=== PATIENT | male | born 1985 | race Caucasian/White ===

== ENCOUNTER → 2020-11-22 | Day surgery (SDC) | payer OTHER ==
[~2020-11-22] VITALS: Ht 188 cm; Wt 147.4 kg
[~2020-11-22] MED LIST: HYDROCODON-ACE1 EAC2 PO; NORCO 5-325 TA1 EACH PO; ONDANSETRON ODT8 MG PO; VICODIN 10/3251 EACH PO
== END | disposition home or self-care (01) ==
LOC: FAS 06:50
DX: K64.1 Second degree hemorrhoids (principal); K64.4 Residual hemorrhoidal skin tags; F17.210 Nicotine dependence, cigarettes, uncomplicated; Z79.899 Other long term (current) drug therapy
CPT/HCPCS: J1100; J2250; J2704; J7120

== ENCOUNTER → 2021-02-11 | Day surgery (SDC) | payer OTHER ==
[~2021-02-11] VITALS: Ht 188 cm; Wt 147.4 kg
[2021-02-11 11:02] LABS: HCT 43.4 % (42.0-52.0); HGB 14.6 g/dl (13.2-18.0); MCH 30.6 pg (25.0-31.0); MCHC 33.6 g/dL (32.0-36.0); RBC 4.77 M/uL (4.70-6.00); WBC 11.9 K/uL (4.0-10.5)
[2021-02-11 11:34] LABS: ALBUMIN 3.5 g/dL (3.4-5.0); BILIRUBIN - TOTAL 0.4 mg/dL (0.2-1.0); BUN/CREAT RATIO (CALC) 13.9 RATIO; CREATININE 0.79 mg/dL (0.67-1.17); GLOBULIN (CALCULATION) 3.6 g/dL; TOTAL PROTEIN 7.1 g/dL (6.4-8.2)
== END | disposition home or self-care (01) ==
LOC: FAS 08:46
PROVIDERS: Surgery
DX: L05.01 Pilonidal cyst with abscess (principal); K64.8 Other hemorrhoids; F17.210 Nicotine dependence, cigarettes, uncomplicated; Z79.891 Long term (current) use of opiate analgesic
CPT/HCPCS: 36415; 80053; 93005; J1170; J2250; J2405; J2704; J3010; J7120

== ENCOUNTER → 2021-03-07 | Day surgery (SDC) | payer OTHER ==
[~2021-03-07] VITALS: Ht 188 cm; Wt 147.4 kg
== END | disposition home or self-care (01) ==
LOC: FAS 07:01
DX: L05.01 Pilonidal cyst with abscess (principal); F17.210 Nicotine dependence, cigarettes, uncomplicated
CPT/HCPCS: J2250; J2270; J2405; J2704; J2710; J3010

== ENCOUNTER → 2022-03-06 | Day surgery (SDC) | payer OTHER ==
[~2022-03-06] VITALS: Ht 188 cm; Wt 147.4 kg
[2022-03-06 10:50] LABS: HCT 46.6 % (42.0-52.0); HGB 15.3 g/dl (13.2-18.0); MCH 29.5 pg (25.0-31.0); MCHC 32.8 g/dL (32.0-36.0); MPV 10.7 fL (6.0-9.5); RBC 5.18 M/uL (4.70-6.00); RDW 12.2 % (11.5-14.0); WBC 10.1 K/uL (4.0-10.5)
[2022-03-06 11:22] LABS: ALBUMIN 3.7 g/dL (3.4-5.0); BILIRUBIN - TOTAL 0.2 mg/dL (0.2-1.0); BUN/CREAT RATIO (CALC) 18.4 RATIO; CREATININE 0.76 mg/dL (0.67-1.17); GLOBULIN (CALCULATION) 3.6 g/dL; POTASSIUM 4.3 mmol/L (3.5-5.1); TOTAL PROTEIN 7.3 g/dL (6.4-8.2)
== END | disposition home or self-care (01) ==
LOC: FAS 09:51
PROVIDERS: Surgery
DX: L05.01 Pilonidal cyst with abscess (principal); F17.210 Nicotine dependence, cigarettes, uncomplicated
CPT/HCPCS: 36415; 80053; J1170; J2250; J2704; J3010; J7120

== ENCOUNTER → 2022-04-17 | Day surgery (SDC) | payer OTHER ==
[~2022-04-17] VITALS: Ht 188 cm; Wt 147.4 kg
[~2022-04-17] MED LIST changes: +BUSPIRONE HCL10 MG PO
[2022-04-17 11:12] LABS: HGB 15.7 g/dl (13.2-18.0); MCH 30.3 pg (25.0-31.0); MCHC 33.4 g/dL (32.0-36.0); MCV 90.7 fL (78.0-100.0); MPV 10.4 fL (6.0-9.5); RBC 5.18 M/uL (4.70-6.00); RDW 12.4 % (11.5-14.0); WBC 11.4 K/uL (4.0-10.5)
[2022-04-17 11:34] LABS: ALBUMIN 3.8 g/dL (3.4-5.0); BILIRUBIN - TOTAL 0.3 mg/dL (0.2-1.0); BUN/CREAT RATIO (CALC) 14.8 RATIO; CREATININE 0.81 mg/dL (0.67-1.17); GLOBULIN (CALCULATION) 3.7 g/dL; POTASSIUM 4.4 mmol/L (3.5-5.1); TOTAL PROTEIN 7.5 g/dL (6.4-8.2)
== END | disposition home or self-care (01) ==
LOC: FAS 10:27
PROVIDERS: Surgery
DX: K64.1 Second degree hemorrhoids (principal); R19.4 Change in bowel habit; F17.200 Nicotine dependence, unspecified, uncomplicated
CPT/HCPCS: 36415; 80053; J1100; J2250; J2704; J7120